=== PATIENT | female | born 1985 | race Caucasian/White ===

== ENCOUNTER 2021-02-07 20:07 | Emergency (ER) | payer MEDICAID, OTHER ==
[~2021-02-07] VITALS: Ht 170.2 cm; Wt 124.7 kg
[~2021-02-07 20:07] MED LIST: CLON1TAB11 PO; SERT50TA PO
[2021-02-07 20:35] VITALS: BP 119/77
[2021-02-07] MEDS ORDERED: TORADOL IM STA (21:26)
[2021-02-07] MEDS ORDERED: TORADOL ONE (21:33)
--- NOTE | 2021-02-07 21:50 | DIREP ---
PROCEDURE:CT HEAD WITHOUT CONTRAST TECHNIQUE:Axial cuts were obtained through the head, without intravenous contrast material. The images were viewed at brain and bone settings. COMPARISON:None. INDICATIONS:Headache FINDINGS: VENTRICLES:Normal. CEREBRUM:Normal. CEREBELLUM:Questionable defect in the lower right cerebellum series 2, image 4. BRAINSTEM:Normal. SKULL:Normal. SINUSES:Normal. OTHER:Negative. CONCLUSION:Questionable defect in the lower right cerebellum series 2, image 4. Recommend CT scan with contrast or MRI study if clinically indicated. Dictated by: Michael Castillo M.D. on 02/07/2021 at 09:46 PM
[2021-02-07 21:55] VITALS: BP 143/84
--- NOTE | 2021-02-07 22:10 | NUR ---
Using aseptic technique IV inserted left AC 20 gauge x1 attempt, good blood return, labs drawn, flushed with NS, secured. Patient tolerated well.
[2021-02-07 22:12] LABS: BASOPHIL % 0.2 % (0.0-0.2); EOSINOPHIL # 0.1 10^3/uL (0.0-0.2); EOSINOPHIL % 0.9 % (0.0-5.0); LYMPHOCYTES # 2.87 10^3/uL1 (1.0-4.8); LYMPHOCYTES % 23.8 % (24.0-44.0); MEAN CORP HGB 30.5 pg (26-34); MONOCYTES # 0.7 10^3/uL (0.3-0.8); MONOCYTES % 5.6 % (5.0-12.0); NEUTROPHIL # 8.4 10^3/uL (1.8-7.7); NEUTROPHILS % 69.3 % (41.0-85.0); PLATELET COUNT 227 10^3/uL (150-400); RED CELL DISTRIBUTION WIDTH 14.7 % (11.5-14.5)
[2021-02-07 22:22] LABS: CALCIUM 10.5 mg/dL (8.4-10.5); CARBON DIOXIDE 26.1 mmol/L (20.0-32)
[2021-02-07 22:43] VITALS: BP 158/80
--- NOTE | 2021-02-07 22:54 | ER.PDOC ---
General Chief Complaint: Headache Stated Complaint: MIGRAINE Time seen by MD: 22:51 Source: patient Exam Limitations: no limitations History of Present Illness Initial Comments Headache for 2 to 4 months. No nausea or vomiting. She has occasional photophobia. Severity/Quality: moderate, sharp Associated Symptoms: sensitivity to light Allergies: Coded Allergies: No Known Allergies (Unverified , 12/02/17) Home Meds Reported Medications Clonazepam (CLONAZEPAM) 1 Mg Tablet, 1 TAB PO HS, #30 TAB 12/01/17 Sertraline Hcl (ZOLOFT) 50 Mg Tablet, 75 MG PO DAILY24, TABLET 12/01/17 Past Medical History Medical History: no pertinent history Surgical History: tubal Family History Significant Family History: no pertinent family hx Social History Alcohol Use: occassionally Drug Use: none Review of Systems Constitutional: no symptoms reported Eyes: see HPI Ears, Nose, Mouth, Throat: no symptoms reported Respiratory: no symptoms reported Cardiovascular: no symptoms reported Gastrointestinal: no symptoms reported All Other Systems: Reviewed and Negative Physical Exam General Appearance: No Apparent Distress, WD/WN ENT: nml ENT inspection, pharynx nml Neck: nml inspection, Supple Cardiovascular: Normal Peripheral Pulses, Regular Rate, Rhythm, No Edema, No Gallop, No JVD, No Murmur Respiratory: chest non-tender, lungs clear, normal breath sounds, no respiratory distress, no accessory muscle use Gastrointestinal: Normal Bowel Sounds, No Organomegaly, No Pulsatile Mass, Non Tender, Soft Extremities: Normal Range of Motion, Non-Tender, Normal Inspection, No Pedal Edema, No Calf Tenderness, Normal Capillary Refill Psychiatric: Alert, Oriented x 3 Cranial Nerves: Normal Hearing, Normal Speech, PERRL Motor/Sensory: No Motor Deficit, No Sensory Deficit, No Pronator Drift, Negative Babinski's Sign Skin: Warm/Dry, Normal Color Lymphatic: No Adenopathy Results/Orders Results/Orders Orders - OSORIO COTO MD Ct Head Wo Contrast (02/07/21 21:26) Ketorolac Tromethamine (Toradol) (02/07/21 21:26) Ketorolac Tromethamine (Toradol) (02/07/21 21:33) Cta Head (02/07/21 21:58) Basic Metabolic Panel (02/07/21 21:58) Cbc With Auto Diff (02/07/21 21:58) Vital Signs Date Time Temp Pulse Resp B/P (MAP) Pulse Ox O2 Delivery O2 Flow Rate FiO2 02/07/21 22:43 98.1 86 16 158/80 (106) 94 Room Air 02/07/21 21:55 98.1 90 16 143/84 (103) 96 Room Air 02/07/21 20:35 98.1 98 16 119/77 (91) 97 Room Air 02/07/21 20:35 98.1 98 16 97 02/07/21 20:35 98.1 98 16 Administered Medications Medications (Trade) Dose Ordered Sig/Ginny Route PRN Reason Start Time Stop Time Status Last Admin Dose Admin Ketorolac Tromethamine (Toradol) 60 mg STAT STAT IM 02/07/21 21:26 02/07/21 21:28 DC 02/07/21 21:36 60 MG Laboratory Tests Test 02/07/21 22:06 White Blood Count 12.1 10^3/uL (4.5-11.0) H Red Blood Count 5.01 10^6/uL (4.00-5.20) Hemoglobin 15.3 g/dL (12.0-15.0) H Hematocrit 47.2 % (36.0-46.0) H Mean Corpuscular Volume 94.2 fL (78-100) Mean Corpuscular Hemoglobin 30.5 pg (26-34) Mean Corpuscular Hemoglobin Concent 32.4 g/dL (33-36.5) L Red Cell Distribution Width 14.7 % (11.5-14.5) H Platelet Count 227 10^3/uL (150-400) Mean Platelet Volume 11.4 fL (7.8-11.0) H Neutrophils (%) (Auto) 69.3 % (41.0-85.0) Lymphocytes (%) (Auto) 23.8 % (24.0-44.0) L Monocytes (%) (Auto) 5.6 % (5.0-12.0) Neutrophils # (Auto) 8.4 10^3/uL (1.8-7.7) H Lymphocytes # (Auto) 2.87 10^3/uL1 (1.0-4.8) Monocytes # (Auto) 0.7 10^3/uL (0.3-0.8) Absolute Immature Granulocyte (auto 0.02 10^3 u/L (0-2) Absolute Eosinophils (auto) 0.1 10^3/uL (0.0-0.2) Immature Granulocytes % 0.20 % (0.00-0.50) Eosinophils % 0.9 % (0.0-5.0) Basophils % 0.2 % (0.0-0.2) Basophils # 0.0 10^3/uL (0.0-0.1) Sodium Level 136 mmol/L (132-145) Potassium Level 4.0 mmol/L (3.6-5.2) Chloride Level 101.0 mmol/L (96-109) Carbon Dioxide Level 26.1 mmol/L (20.0-32) Glucose Level 152 mg/dL (70-110) H Blood Urea Nitrogen 9 mg/dL (7-18) Creatinine 0.68 mg/dL (0.59-1.40) Calcium Level 10.5 mg/dL (8.4-10.5) Anion Gap 12.9 Estimated GFR () 118.5 (>/=60) Est GFR (CKD-EPI)(Non-Afr Danish) 97.9 (>/=60) BUN/Creatinine Ratio 13.[address] head: No hemodynamically significant stenosis, aneurysm, or dissection of the major intracranial vessels, as detailed above. Patient is feeling better to go home after a Toradol shot. Reviewed CT findings with her. ER DEPART Departure Time of Disposition: 23:29 Disposition: 01 HOME / SELF CARE / HOMELESS Impression: Primary Impression: Headache Condition: Improved Referrals: PCP,UNKNOWN (PCP) PRIMARY CARE PROVIDER Additional Instructions: F/U with your PCP in 2-3 days Return to ED if worsening symptoms or concerns Duration or Time Spent with Pa: 30 min Problem Qualifiers Primary Impression: Headache Headache type: unspecified Headache chronicity pattern: chronic headache Intractability: intractable Qualified Codes: R51.9 - Headache, unspecified; G89.29 - Other chronic pain OSORIO COTO MD Feb 07, 2021 22:54
--- NOTE | 2021-02-07 23:23 | DIREP ---
PROCEDURE:CT ANGIOGRAPHY HEAD COMPARISON:[facility], CT, CT HEAD BRAIN W/O CONTRAST, 02/07/2021, 09:38 PM. INDICATIONS:Headache and abnormal CT head TECHNIQUE:After obtaining the patient's consent, CT images of the head were obtained with non-ionic contrast, and with multi-planar/3-D imaging to optimize visualization of vascular anatomy. FINDINGS: Please refer to same-day noncontrast CT brain for parenchymal findings. Internal carotid arteries, middle cerebral arteries, anterior cerebral arteries, and posterior cerebral arteries are patent. Vertebral arteries and basilar artery are patent. Bilateral posterior communicating arteries are seen. No suspicious enhancing lesion. CONCLUSION: No hemodynamically significant stenosis, aneurysm, or dissection of the major intracranial vessels, as detailed above. Dictated by: Rio Shi MD on 02/07/2021 at 11:18 PM
--- NOTE | 2021-02-07 23:32 | NUR ---
IV DC'D TIP INTACT, NO BLEEDING
[2021-02-07 23:35] VITALS: BP 140/86
== END 2021-02-07 23:35 | disposition home or self-care (01) ==
LOC: ER 20:07
DX: R51.9 Headache, unspecified (principal); G89.29 Other chronic pain; Z79.1 Long term (current) use of non-steroidal anti-inflammatories (NSAID); Z79.899 Other long term (current) drug therapy
CPT/HCPCS: 36415; 70450; 70496; 80048; 85025; 96372; 99285; J1885; Q9965